=== PATIENT | male | born 1950 | race Caucasian/White ===

== ENCOUNTER 2017-12-12 08:24 | Inpatient (IN) | payer MEDICARE ==
[~2017-12-12] VITALS: Ht 180.3 cm; Wt 103.8 kg
[~2017-12-12 08:24] MED LIST: BENZ1TAB70 PO; DIVA500T35 PO; HALO5TAB2 PO; LEVO50 PO; LORA2TAB2 PO; MAGOX PO; NICO21T TD; QUET200T PO; QUET400T PO; ZOLP10TA7 PO
[2017-12-12 10:36] VITALS: BP 119/86
[2017-12-12 11:40] VITALS: BP 108/80
[2017-12-12] MEDS ORDERED: MELO-107 PO (11:52)
[2017-12-12] MEDS ORDERED: CALC-1009 PO (11:52)
[2017-12-12] MEDS ORDERED: MONT10TA21 PO (11:52)
[2017-12-12] MEDS ORDERED: ATEN25TA PO (11:52)
[2017-12-12] MEDS ORDERED: ALLO100T PO (11:52)
[2017-12-12] MEDS: GABAPENTIN 300 MG CAPSULE PO SCH ×2 (13:23→16:44)
[2017-12-12] MEDS: DIVALPROEX SODIUM 500 MG ER TABLET PO SCH ×2 (13:24→16:43)
[2017-12-12] MEDS: RisperiDONE 4 MG TABLET PO SCH ×2 (13:24→16:44)
[2017-12-12 16:02] VITALS: BP 145/86
[2017-12-12] MEDS: LORazepam 2 MG TABLET PO PRN (16:44)
[2017-12-12] MEDS: QUEtiapine FUMARATE 200 MG TABLET PO SCH ×2 (16:44→20:29)
[2017-12-12] MEDS: ZOLPIDEM TARTRATE 10 MG TABLET PO PRN (20:29)
[2017-12-12] MEDS: BENZTROPINE MESYLATE 1 MG TABLET PO SCH (20:29)
[2017-12-13 06:56] VITALS: BP 138/74
[2017-12-13 08:04] VITALS: BP 145/83
[2017-12-13 08:11] LABS: BASOPHILS % (AUTO) 0.3 % (0.0-2.0); EOSINOPHILS % (AUTO) 1.5 % (1.0-6.0); HEMATOCRIT 40.6 % (41-53); HEMOGLOBIN 14.5 g/dL (13.5-17.5); LYMPHOCYTES # (AUTO) 1.4 K/uL (1.0-4.8); LYMPHOCYTES % (AUTO) 39.5 % (22.0-44.0); MEAN CORPUSCULAR HEMOGLOBIN 37.3 pg (26.0-34.0); MEAN CORPUSCULAR HGB CONC 35.6 G/dL (31.0-37.0); MEAN CORPUSCULAR VOLUME 105 fL (80-100); MONOCYTES # (AUTO) 0.7 K/uL (0.1-1.0); MONOCYTES % (AUTO) 21.5 % (2.0-9.0); NEUTROPHILS # (AUTO) 1.3 K/uL (1.8-7.7); NEUTROPHILS % (AUTO) 37.2 % (40.0-70.0); PLATELET COUNT (AUTO) 111 K/uL (150-450); RED BLOOD CELL COUNT(AUTO) 3.88 MIL/uL (4.50-5.90); RED CELL DISTRIBUTION WIDTH 13.3 % (11.5-14.5)
[2017-12-13 08:20] LABS: HEMOGLOBIN A1C 5.9 % (4.5-6.2)
[2017-12-13] MEDS: DIVALPROEX SODIUM 500 MG ER TABLET PO SCH ×3 (08:32→16:21)
[2017-12-13] MEDS: GABAPENTIN 300 MG CAPSULE PO SCH ×3 (08:32→16:23)
[2017-12-13] MEDS: RisperiDONE 4 MG TABLET PO SCH ×3 (08:32→16:21)
[2017-12-13] MEDS: QUEtiapine FUMARATE 200 MG TABLET PO SCH ×3 (08:32→20:32)
[2017-12-13 08:47] LABS: ALBUMIN 2.8 g/dL (3.4-5.0); BILIRUBIN,TOTAL 0.5 mg/dL (0.1-1.0); CALCIUM, TOTAL 8.6 mg/dL (8.8-10.5); CHOL/HDL RATIO 3.1 (4.2-7.3); CREATININE 1.62 mg/dL (0.60-1.30); FREE T4 (FREE THYROXINE) 0.68 ng/dL (0.76-1.46); POTASSIUM 4.3 mmol/L (3.5-5.1); THYROID STIMULATING HORMONE 2.63 uIU/mL (0.36-3.74); TOTAL PROTEIN, SERUM 7.7 g/dL (6.4-8.2)
[2017-12-13] MEDS ORDERED: INDOMETHACIN 25 MG CAPSULE PO PRN (09:15)
[2017-12-13] MEDS: LORazepam 2 MG TABLET PO PRN ×2 (11:17→16:23)
[2017-12-13] MEDS: HALOPERIDOL 5 MG TABLET PO PRN (11:18)
[2017-12-13 16:24] VITALS: BP 138/75
[2017-12-13] MEDS: BENZTROPINE MESYLATE 1 MG TABLET PO SCH (20:32)
[2017-12-13] MEDS: ZOLPIDEM TARTRATE 10 MG TABLET PO PRN (20:33)
[2017-12-14] MEDS: LEVOTHYROXINE SODIUM 25 MCG TABLET PO SCH (06:39)
[2017-12-14 06:52] VITALS: BP 142/88
[2017-12-14] MEDS: HALOPERIDOL 5 MG TABLET PO PRN ×2 (08:19→16:06)
[2017-12-14] MEDS: MONTELUKAST SODIUM 10 MG TABLET PO SCH (08:19)
[2017-12-14] MEDS: ALLOPURINOL 100 MG TABLET PO SCH (08:19)
[2017-12-14] MEDS: NICOTINE 21 MG/24 HOUR PATCH TD SCH (08:19)
[2017-12-14] MEDS: LORazepam 2 MG TABLET PO PRN ×2 (08:19→16:06)
[2017-12-14] MEDS: GABAPENTIN 300 MG CAPSULE PO SCH ×3 (08:19→16:05)
[2017-12-14] MEDS: RisperiDONE 4 MG TABLET PO SCH ×3 (08:20→16:05)
[2017-12-14] MEDS: DIVALPROEX SODIUM 500 MG ER TABLET PO SCH ×3 (08:20→16:05)
[2017-12-14] MEDS: QUEtiapine FUMARATE 200 MG TABLET PO SCH ×3 (08:20→20:20)
[2017-12-14 08:27] VITALS: BP 132/82
[2017-12-14 16:05] VITALS: BP 121/85
[2017-12-14] MEDS: BENZTROPINE MESYLATE 1 MG TABLET PO SCH (20:19)
[2017-12-14] MEDS: ZOLPIDEM TARTRATE 10 MG TABLET PO PRN (21:10)
[2017-12-15] MEDS: LEVOTHYROXINE SODIUM 25 MCG TABLET PO SCH (06:02)
[2017-12-15 06:10] VITALS: BP 122/79
[2017-12-15 08:34] VITALS: BP 124/72
[2017-12-15] MEDS: DIVALPROEX SODIUM 500 MG ER TABLET PO SCH (08:34)
[2017-12-15] MEDS: GABAPENTIN 300 MG CAPSULE PO SCH (08:34)
[2017-12-15] MEDS: ALLOPURINOL 100 MG TABLET PO SCH (08:34)
[2017-12-15] MEDS: RisperiDONE 4 MG TABLET PO SCH (08:34)
[2017-12-15] MEDS: MONTELUKAST SODIUM 10 MG TABLET PO SCH (08:34)
[2017-12-15] MEDS: NICOTINE 21 MG/24 HOUR PATCH TD SCH (08:34)
[2017-12-15] MEDS: QUEtiapine FUMARATE 200 MG TABLET PO SCH (08:34)
[2017-12-15] MEDS ORDERED: QUET200T29 PO ×2 (09:21)
[2017-12-15] MEDS ORDERED: RISP4 PO (09:21)
[2017-12-15] MEDS ORDERED: BENZ1TAB10 PO (09:21)
[2017-12-15] MEDS ORDERED: DIVA500T52 PO ×2 (09:21)
[2017-12-15] MEDS ORDERED: GABA-531 PO (09:21)
== END 2017-12-15 12:15 | disposition home health service (06) | DRG 885 ==
LOC: B3A 11:09
DX: F20.0 Paranoid schizophrenia (principal); D69.59 Other secondary thrombocytopenia; J44.9 Chronic obstructive pulmonary disease, unspecified; F15.20 Other stimulant dependence, uncomplicated; B19.20 Unspecified viral hepatitis C without hepatic coma; D72.819 Decreased white blood cell count, unspecified; E03.9 Hypothyroidism, unspecified; F12.90 Cannabis use, unspecified, uncomplicated; I12.9 Hypertensive chronic kidney disease with stage 1 through stage 4 chronic kidney disease, or unspecified chronic kidney disease; M10.9 Gout, unspecified; N18.9 Chronic kidney disease, unspecified; Z59.9 Problem related to housing and economic circumstances, unspecified; Z72.0 Tobacco use; Z79.899 Other long term (current) drug therapy; Z85.47 Personal history of malignant neoplasm of testis
CPT/HCPCS: 83036; 84439; 84443; 87081